=== PATIENT | female | born 1940 | race Caucasian/White ===

== ENCOUNTER 2017-07-17 12:14 | Emergency (ER) | payer OTHER ==
[~2017-07-17 12:14] MED LIST: ATOR40TA PO; CIPR500T2 PO; CYCL-36 PO; MAGN400 PO; METR-1 PO; NAPR250T57 PO; PANT20 PO
[2017-07-17 12:20] VITALS: BP 159/75; PULSE 72; RESP 20; TEMP 98; O2SAT 95
[2017-07-17] MEDS ORDERED: ATOR40TA16 PO (12:31)
[2017-07-17] MEDS ORDERED: CALC600T5 PO (12:43)
[2017-07-17] MEDS ORDERED: MAGN400T2 PO (12:43)
[2017-07-17] MEDS ORDERED: VITA100021 SL (12:43)
[2017-07-17] MEDS ORDERED: PANT40TA3 PO (12:43)
[2017-07-17 12:57] LABS: AUTOMATED NEUTROPHIL # 4.1 TH/MM3 (1.8-7.7); BASOPHIL # 0.1 TH/MM3 (0-0.2); BASOPHIL % 0.8 % (0.0-2.0); EOSINOPHIL # 0.3 TH/MM3 (0-0.4); EOSINOPHIL % 3.7 % (0.0-4.0); HEMATOCRIT 46.7 % (35.0-46.0); HEMO FLAGS DIFF FINAL; LYMPH % 33.3 % (9.0-44.0); LYMPHOCYTE # 2.6 TH/MM3 (1.0-4.8); MEAN CELL VOLUME 86.7 FL (80.0-100.0); MEAN CORPUSCULAR HEMOGLOBIN 27.8 PG (27.0-34.0); MEAN CORPUSCULAR HGB CONC 32.1 % (32.0-36.0); MONO % 10.4 % (0.0-8.0); NEUT % 51.8 % (16.0-70.0); PLATELET COUNT 347 TH/MM3 (150-450); RED BLOOD COUNT 5.38 MIL/MM3 (4.00-5.30); RED CELL DISTRIBUTION WIDTH 13.3 % (11.6-17.2); WHITE BLOOD COUNT 7.9 TH/MM3 (4.0-11.0)
[2017-07-17 13:00] VITALS: BP 180/90; PULSE 71; RESP 20; O2SAT 100
[2017-07-17 13:00] LABS: BLOOD, URINE TRACE (NEG); GLUCOSE,URINE NEG (NEG); KETONE, URINE NEG (NEG); NITRITE,URINE POS (NEG); PH, URINE 5.5 (5.0-8.5)
[2017-07-17] MEDS ORDERED: SODIUM CHLORIDE 0.9% FLUSH 10 ML FLUSH IV FLUSH PRN (13:00)
[2017-07-17 13:02] LABS: METHOD OF COLLECTION CLEAN CATCH; URINE COLOR YELLOW (YELLW/STRAW)
[2017-07-17 13:05] LABS: CHLORIDE 109 MEQ/L (98-107); POTASSIUM 3.7 MEQ/L (3.5-5.1); SODIUM (NA) 142 MEQ/L (136-145)
[2017-07-17 13:05] LABS: BACTERIA, URINE MANY /hpf; COMMENT (UR) CULTURE INDICATED; CULTURE IF INDICATED CULTURE INDICATED; RBC, URINE 0-3 /hpf (0-3)
[2017-07-17 13:09] LABS: ANION GAP 7 MEQ/L (5-15); BICARBONATE 25.8 MEQ/L (21.0-32.0); BLOOD UREA NITROGEN 20 MG/DL (7-18)
[2017-07-17 13:12] LABS: ALT (GPT) 25 U/L (10-53); AST (GOT) 19 U/L (15-37); GLOMERULAR FILTRATION RATE 69 ML/MIN (>89)
[2017-07-17 13:13] LABS: TOTAL BILIRUBIN ADULT 0.7 MG/DL (0.2-1.0)
[2017-07-17 13:15] LABS: ALKALINE PHOSPHATASE 71 U/L (45-117)
--- NOTE | 2017-07-17 13:33 | PD ---
HPI Chief Complaint: General Weakness Time Seen by Provider: 12:36 Travel History International Travel<30 days: No Contact w/Intl Traveler<30days: No Traveled to known affect area: No History of Present Illness HPI Patient 77-year-old female presents emergency department for evaluation of generalized weakness as well as left shoulder pain and mild headache. She states symptoms been going on for the past 4 days associated with some mild vertiginous type symptoms. Denies any chest pain shortness of breath abdominal pain. Denies any focalized weakness. She states that she wasn't really concerned with symptoms but has a road trip planned to [place] tomorrow and wanted to be checked out to make sure she would be okay to drive. No presyncopal symptoms. This never happened to her before. Cannot think of any alleviating or exacerbating factors. States he has suffered from chronic diarrhea she states from diverticulosis. No blood in the stool no darkening stool. PFSH Past Medical History Autoimmune Disease: No Anxiety: Yes Cardiovascular Problems: Yes (CHOL) High Cholesterol: Yes Diminished Hearing: No Endocrine: No Gastrointestinal Disorders: Yes (IBS, diverticulitis) GERD: Yes Immune Disorder: No Influenza Vaccination: No ?: Not Past Surgical History Hysterectomy: Yes Other Surgery: Yes Social History Alcohol Use: No Tobacco Use: Yes (08/18-08/17 ppd) Substance Use: No Allergies-Medications (Allergen,Severity, Reaction): Coded Allergies: No Known Allergies (Verified , 01/20/16) Reported Meds & Prescriptions Reported Meds & Active Scripts Active Keflex (Cephalexin) 500 Mg Cap 500 Mg PO Q6H 5 Days Reported Vitamin B-12 (Cyanocobalamin) 1,000 Mcg Subl 1,000 Mcg SL DAILY Calcium (Calcium Carbonate) 600 Mg Calcium (1500 Mg) Tab 600 Mg PO DAILY Magnesium Oxide 400 Mg Tab 400 Mg PO DAILY Pantoprazole (Pantoprazole Sodium) 40 Mg Tab 40 Mg PO DAILY Atorvastatin (Atorvastatin Calcium) 40 Mg Tab 40 Mg PO HS Review of Systems Except as stated in HPI: all other systems reviewed are Neg Physical Exam Narrative GENERAL: Well-developed well-nourished no obvious distress SKIN: Focused skin assessment warm/dry. HEAD: Atraumatic. Normocephalic. EYES: Pupils equal and round. No scleral icterus. No injection or drainage. ENT: No nasal bleeding or discharge. Mucous membranes pink and moist. NECK: Trachea midline. No JVD. CARDIOVASCULAR: Regular rate and rhythm. No murmur appreciated. RESPIRATORY: No accessory muscle use. Clear to auscultation. Breath sounds equal bilaterally. GASTROINTESTINAL: Abdomen soft, non-tender, nondistended. Hepatic and splenic margins not palpable. MUSCULOSKELETAL: No obvious deformities. No clubbing. No cyanosis. No edema. No midline CT or L-spine tenderness, no bony tenderness in bilateral upper extremities bilateral lower externa's, full nontender range of motion of all joints of extremities. Pulses motor and sensory intact distally in all 4 extremities. NEUROLOGICAL: Awake and alert. Cranial nerves II through XII are grossly intact and nonfocal, 5 out of 5 strength in all 4 extremities, cerebellar testing negative, and relates with an even narrow based gait. PSYCHIATRIC: Appropriate mood and affect; insight and judgment normal. Data Data Last Documented VS Vital Signs Date Time Temp Pulse Resp B/P (MAP) Pulse Ox O2 Delivery O2 Flow Rate FiO2 07/17/17 13:52 07/17/17 13:00 71 20 100 07/17/17 12:20 98.0 Orders Orders Electrocardiogram (07/17/17 12:46) Complete Blood Count With Diff (07/17/17 12:46) Comprehensive Metabolic Panel (07/17/17 12:46) Troponin I (07/17/17 12:46) Blood Glucose (07/17/17 12:46) Ecg Monitoring (07/17/17 12:46) Iv Access Insert/Monitor (07/17/17 12:46) Oximetry (07/17/17 12:46) Sodium Chloride 0.9% Flush (Ns Flush) (07/17/17 13:00) Thyroid Stimulating Hormone (07/17/17 12:47) Urinalysis - C+S If Indicated (07/17/17 12:53) Urine Culture (07/17/17 12:55) Ed Discharge Order (07/17/17 13:46) Labs Laboratory Tests Test 07/17/17 12:50 07/17/17 12:55 White Blood Count 7.9 TH/MM3 Red Blood Count 5.38 MIL/MM3 Hemoglobin 15.0 GM/DL Hematocrit 46.7 % Mean Corpuscular Volume 86.7 FL Mean Corpuscular Hemoglobin 27.8 PG Mean Corpuscular Hemoglobin Concent 32.1 % Red Cell Distribution Width 13.3 % Platelet Count 347 TH/MM3 Mean Platelet Volume 8.3 FL Neutrophils (%) (Auto) 51.8 % Lymphocytes (%) (Auto) 33.3 % Monocytes (%) (Auto) 10.4 % Eosinophils (%) (Auto) 3.7 % Basophils (%) (Auto) 0.8 % Neutrophils # (Auto) 4.1 TH/MM3 Lymphocytes # (Auto) 2.6 TH/MM3 Monocytes # (Auto) 0.8 TH/MM3 Eosinophils # (Auto) 0.3 TH/MM3 Basophils # (Auto) 0.1 TH/MM3 CBC Comment DIFF FINAL Differential Comment Blood Urea Nitrogen 20 MG/DL Creatinine 0.81 MG/DL Random Glucose 97 MG/DL Total Protein 7.2 GM/DL Albumin 3.7 GM/DL Calcium Level 8.8 MG/DL Alkaline Phosphatase 71 U/L Aspartate Amino Transf (AST/SGOT) 19 U/L Alanine Aminotransferase (ALT/SGPT) 25 U/L Total Bilirubin 0.7 MG/DL Sodium Level 142 MEQ/L Potassium Level 3.7 MEQ/L Chloride Level 109 MEQ/L Carbon Dioxide Level 25.8 MEQ/L Anion Gap 7 MEQ/L Estimat Glomerular Filtration Rate 69 ML/MIN Troponin I LESS THAN 0.02 NG/ML Thyroid Stimulating Hormone 3rd Gen 1.270 uIU/ML Urine Collection Type CLEAN CATCH Urine Color YELLOW Urine Turbidity SLIGHT Urine pH 5.5 Urine Specific [place] 1.018 Urine Protein NEG mg/dL Urine Glucose (UA) NEG mg/dL Urine Ketones NEG mg/dL Urine Occult Blood TRACE Urine Nitrite POS Urine Bilirubin NEG Urine Leukocyte Esterase SMALL Urine RBC 0-3 /hpf Urine WBC 25-49 /hpf Urine Squamous Epithelial Cells 6-8 /hpf Urine Bacteria MANY /hpf Microscopic Urinalysis Comment CULTURE INDICATED Urine Collection Time 12:55 MDM Medical Decision Making Medical Screen Exam Complete: Yes Emergency Medical Condition: Yes Differential Diagnosis Vertigo, weakness, body aches, acute stroke highly unlikely, ACS highly unlikely , [place] highly likely. Narrative Course Patient roomed emergency department, despite having no urinary symptoms or urine test nitrate positive, certainly is possible that this is contributing to her symptoms but she has no Sirs criteria and is unlikely. No definitive cause of her symptoms is been isolated, CT head negative, basic labs negative. She appears well neurologically nonfocal hemoglobin stable. I see no reason why she couldn't take her trip tomorrow. She stable for discharge. Diagnosis Primary Impression: UTI (urinary tract infection) Qualified Codes: N30.00 - Acute cystitis without hematuria Additional Impression: Fatigue Med/Other Pt SpecificInfo: Prescription(s) given Scripts Cephalexin (Keflex) 500 Mg Cap 500 MG PO Q6H for Infection for 5 Days, #20 CAP 0 Refills Prov: Delvis Kwon MD 07/17/17 Disposition: 01 DISCHARGE HOME Condition: Stable Delvis Kwon MD Jul 17, 2017 13:33
[2017-07-17] MEDS ORDERED: CEPH-460 PO (13:46)
--- NOTE | 2017-07-18 22:50 | EKG ---
Date Performed: 07/17/2017 Time Performed: 12:57:41 PTAGE: 77 years EKG: Sinus rhythm POSSIBLE INFERIOR MYOCARDIAL INFARCTION BORDERLINE ECG PREVIOUS TRACING : 11/29/2006 14.51 Compared to prior tracing no significant change DOCTOR: Guillaume Cohen Interpretating Date/Time 07/18/2017 22:48:36
== END 2017-07-17 14:04 | disposition home or self-care (01) ==
LOC: PHED 12:14
DX: N30.00 Acute cystitis without hematuria (principal); B96.20 Unspecified Escherichia coli [E. coli] as the cause of diseases classified elsewhere; F17.200 Nicotine dependence, unspecified, uncomplicated; R51 Headache; M25.512 Pain in left shoulder
CPT/HCPCS: 80053; 81001; 84443; 84484; 85025; 87077; 87086; 87186; 93005; 99285